=== PATIENT | female | born 1930 | race Hispanic/Latino ===

== ENCOUNTER 2019-02-19 09:11 | Emergency (ER) | payer MEDICARE ==
[~2019-02-19] VITALS: Ht 157.5 cm; Wt 40.8 kg
--- OUTSIDE RECORDS SUMMARY | 2019-02-19 09:13 | XMS REPORT ---
Author Author [facility] Address Unknown Phone Unavailable Care Team Providers Care Exhibition Specialist Name Role Phone Evelina MILLER Unavailable Unavailable Evelina WREN Unavailable Unavailable AGATA PEREZ Unavailable Unavailable Problems This patient has no known problems. Allergies, Adverse Reactions, Alerts This patient has no known allergies or adverse reactions. Medications This patient has no known medications. Results Test Description Test Time Test Comments Text Results Atomic Results Result Comments US GUIDED PARACENTESIS 2019-01-30 14:12:00 [place] [address] Patient Name: ARIAS DEJESUS MR #: [id number] : 1930 Age/Sex: 89/M Req #: [id number] Adm Physician: Ordered by: SLIVER MILLER MD Report #: [id number] Location: Room/Bed: Procedure: [id number] US/US GUIDED PARACENTESIS Exam Date: Exam Time: REPORT STATUS: Signed Date and Time: 01/30/2019 @ 1:00 PM Procedure: Ultrasound guided paracentesis Pre-operative diagnosis: Ascites Post-operative diagnosis: Ascites Conscious Sedation: None The patient's heart rate and pulse oximetry were continuously monitored by the interventional radiology nurse. Blood pressure was monitored at 5 minute intervals. Additional Medications: Lidocaine 1% for local anesthesia Estimated blood loss: Minimal Blood products administered: None Specimens: 7,000 cc straw-colored fluid Implants: None Complications: No immediate Condition at completion: Stable Disposition: Discharged home DISCUSSION: Informed consent was obtained and documented in the medical record. The patient was placed in the supine position and the right upper quadrant of the abdomen was prepped and draped in the standard sterile fashion. A suitable percutaneous approach to the ascitic fluid was identified and 1% lidocaine was infiltrated into the skin and subcutaneous tissues for local anesthesia. Then with sonographic guidance a 5 Tajik Yueh needle catheter was advanced into the peritoneal cavity with return of ascitic fluid. The catheter was advanced off the needle and connected to vacuum bottle with subsequent evacuation of 7,000 cc straw- colored fluid. The catheter was removed and a sterile dressing was applied. The patient tolerated the procedure well without immediate complication. FINDINGS: Large volume ascites. IMPRESSION: Successful ultrasound-guided paracentesis with evacuation of 7,000 cc of straw-colored fluid. Signed by: Dr. Yeni Myers DO on 01/30/2019 2:15 PM Dictated By: YENI MYERS DO 1415 Transcribed By: IFEANYI on 01/30/19 1415 COPY TO: SILVER MILLER MD CT ABDOMEN/PELVIS W 2019-01-13 20:13:00 [place] [address] Patient Name: ARIAS DEJESUS MR #: [id number] : 1930 Age/Sex: 89/M Req #: [id number] [facility] Physician: Ordered by: JONATHAN WREN MD Report #: [id number] Location: ER Room/Bed: Procedure: [id number] CT/CT ABDOMEN/PELVIS W Exam Date: 01/13/19 Exam Time: 1929 REPORT STATUS: Signed EXAM: CT Abdomen and Pelvis WITH contrast INDICATIO N: 89-year-old male with abdominal pain COMPARISON: None. TECHNIQUE: Abdomen and pelvis were scanned utilizing a multidetector helical scanner from the lung base to the pubic symphysis after administration of IV contrast. Coronal and sagittal reformations were obtained. Routine protocol was performed. Scan was performed when during portal venous phase. IV CONTRAST: 150 mL of Omnipaque 300 ORAL CONTRAST: None COMPLICATIONS: None RADIATION DOSE: Total DLP: 339 mGy*cm Estimated effective dose: (DLP x 0.015 x size factor) mSv CTDIvol has been reviewed. It is below the limits set by the Radiation Protocol Committee (RPC). FINDINGS: LINES and TUBES: None. LOWER THORAX: Multiple well-circumscribed cysts are scattered throughout both lungs and range in size from 0.5 cm to 1.5 cm. A moderate size left pleural effusion compresses the left lower lobe. HEPATOBILIARY: A 4.5 cm heterogeneously enhancing mass in the right hepatic lobe on image 20, series 2. The liver is shrunken and has a nodular contour. The caudate lobe is hypertrophied. GALLBLADDER: No radio-opaque stones or sludge. No wall thickening. SPLEEN: Spleen is enlarged and measures up to 13 cm in craniocaudal dimension. PANCREAS: No focal masses or ductal dilatation. ADRENALS: No discrete nodules. Both adrenal glands are thickened. KIDNEYS/URETERS: Kidneys enhance symmetrically. Mild right hydronephrosis without obstructing stone. No cystic or solid mass lesions. No stones. GI TRACT: No abnormal distention, wall thickening, or evidence of bowel obstruction. Appendix is normal. PELVIC ORGANS/BLADDER: Unremarkable. LYMPH NODES: No lymphadenopathy. VESSELS: Moderate calcified atherosclerotic plaque throughout the abdominal aorta branch vessels and pelvic arterial structures. PERITONEUM / RETROPERITONEUM: Moderate amount of free fluid throughout the abdomen and pelvis with mildly thickened and enhancing peritoneum. A fluid-filled inguinal hernias on the right and also contains enhancing peritoneum. Hernia does not contain bowel. BONES: Unremarkable. SOFT TISSUES: Mild subcutaneous edema. IMPRESSION: 1. Findings are most consistent with decompensated cirrhosis with volume overload including left pleural effusion and abdominopelvic ascites. 2. Mass in the liver is highly suspicious for HCC. This can be further evaluated with MRI of the abdomen, liver protocol. 3. Cysts in the bilateral lungs are indeterminate and could represent sequelae of previous infectious/inflammatory insult. Signed by: Claudia Nicole MD on 01/13/2019 8:26 PM Dictated By: CLAUDIA NICOLE MD 25 Transcribed By: IFEANYI on 01/13/192025 COPY TO: JONATHAN WREN MD US GUIDED PARACENTESIS 2019-01-13 15:21:00 [place] [address] Patient Name: ARIAS DEJESUS MR #: [id number] : 1930 Age/Sex: 89/M Req #: [id number] Adm Physician: Ordered by: AGATA PEREZ MD Report #: [id number] Location: US Room/Bed: Procedure: [id number] US/US GUIDED PARACENTESIS Exam Date: Exam Time: REPORT STATUS: Signed Date and Time: 01/13/2019 Procedure: Ultrasound guided paracentesis wafer machine operator: Dr. Thomas Pre-operative diagnosis: Ascites Post-operative diagnosis: Ascites Conscious Sedation: None The patient's heart rate and pulse oximetry were continuously monitored by the interventional radiology nurse. Blood pressure was monitored at 5 minute intervals. Additional Medications: Lidocaine 1% for local anesthesia Estimated blood loss: Minimal Blood products administered: None Specimens: 7700 cc straw-colored fluid Implants: None Complications: No immediate Condition at completion: Stable Disposition: Discharged home DISCUSSION: Informed consent was obtained and documented in the medical record. The patient was placed in the supine position and the right upper quadrant of the abdomen was prepped and draped in the standard sterile fashion. A suitable percutaneous approach to the ascitic fluid was identified and 1% lidocaine was infiltrated into the skin and subcutaneous tissues for local anesthesia. Then under continuous sonographic guidance a 5 Tajik Yueh needle catheter was advanced into the peritoneal cavity with return of ascitic fluid. The catheter was advanced off the needle and connected to vacuum bottle with subsequent evacuation of 7700 cc straw-colored fluid. The catheter was removed and a sterile dressing was applied. The patient tolerated the procedure well without immediate complication. FINDINGS: Moderate ascites. IMPRESSION: Successful ultrasound-guided paracentesis with evacuation of 7700 cc straw-colored fluid. Signed by: Dr. Yomaira Thomas M.D. on 01/13/2019 3:23 PM Dictated By: YOMAIRA THOMAS MD 1523 Transcribed By: IFEANYI on 01/13/19 1523 COPY TO: AGATA PEREZ M.D. US GUIDED PARACENTESIS 2018-12-31 15:18:00 [place] [address] Patient Name: ARIAS DEJESUS MR #: [id number] : 1930 Age/Sex: 88/M Req #: [id number] Adm Physician: Ordered by: SILVER MILLER MD Report #: [id number] Location: Room/Bed: Procedure: [id number] US/US GUIDED PARACENTESIS Exam Date: 12/31/18 Exam Time: 1337 REPORT STATUS: Signed EXAM: Ultrasound-guided paracentesis DATE: 12/31/2018 2:37 PM INDICATION: Cirrhosis PROCEDURES PERFORMED: Ultrasound guided paracentesis Ultrasound images archived and saved in PACS. Anesthesia: Local, 1% lidocaine Devices: 5-Tajik centesis needle PROCEDURE REPORT: After informed consent was obtained, ultrasound was utilized to identify the largest pocket of ascitic fluid. A safe entry route was identified and the overlying skin was prepped and draped in usual sterile fashion. Lidocaine1% was used for local anesthesia. Under ultrasound guidance, a 5 Fr [employer] centesis needle/catheter was advanced into the ascites in the right mid portion of the abdomen. A total of 7,600 cc were aspirated without complication. The catheter was removed and a dressing applied to the skin. Complications: None Blood loss: Minimal, less than 1cc Patient disposition: Stable IMPRESSION: Uncomplicated ultrasound guided paracentesis with removal of 7,600 cc. Signed by: Dr. Yeni Myers DO on 12/31/2018 3:21 PM Dictated By: YENI MYERS DO 152 Transcribed By: IFEANYI on 12/31/18 152 COPY TO: SILVER MILLER MD US GUIDED PARACENTESIS 2018-12-16 15:52:00 [place] [address] Patient Name: ARIAS DEJESUS MR #: [id number] : 1930 Age/Sex: 88/M Req #: [id number] [facility] Physician: Ordered by: SILVER MILLER MD Report #: [id number] Location: Room/Bed: Procedure: [id number] US/US GUIDED PARACENTESIS Exam Date: Exam Time: REPORT STATUS: Signed Procedure: Ultrasound-guided therapeutic paracentesis wafer machine operator: Jose Sylvester MD Pre-operative diagnosis: Ascites Post-operative diagnosis: Ascites Conscious Sedation: None The patient's heart rate and pulse oximetry were continuously monitored by the interventional radiology nurse. Additional Medications: 1% subcutaneous lidocaine 10 cc Estimated blood loss: None. Blood products administered: None Specimens: None Implants: None Condition at completion: Stable DISCUSSION: Informed consent was obtained and documented in the medical record. The right lower quadrant of the abdomen was prepped and draped in standard sterile fashion. 1% lidocaine was infiltrated into the skin and subcutaneous tissues for local anesthesia. Then under continuous sonographic guidance a 5 Fr catheter was advanced into the peritoneal space with subsequent evacuation of 7,300 cc serous fluid by vacuum bottle. The catheter was then removed and a sterile dressing was applied. Postprocedure sonographic imaging demonstrated resolution of ascites. The patient tolerated the procedure well without immediate complication. IMPRESSION: Ultrasound-guided therapeutic paracentesis with removal of 7,300 cc of serous ascites. Signed by: Dr. Jose Sylvester MD on 12/16/2018 3:53 PM Dictated By: JOSE SYLVESTER MD 52 Transcribed By: IFEANYI on 12/16/181552 COPY TO: SILVER MILLER MD US GUIDED PARACENTESIS 2018-11-25 15:37:00 [place] [address] Patient Name: ARISA DEJESUS MR #: [id number] : 1930 Age/Sex: 88/M Req #: [id number] Adm Physician: Ordered by: SILVER MILLER MD Report #: [id number] Location: Room/Bed: Procedure: [id number] US/US GUIDED PARACENTESIS Exam Date: 11/25/18 Exam Time: 1430 REPORT STATUS: Signed EXAM: Ultrasound-guided paracentesis DATE: 11/25/2018 2:32 PM INDICATION: Cirrhosis PROCEDURES PERFORMED: Ultrasound guided paracentesis Ultrasound images archived and saved in PACS. Anesthesia: Local, 1% lidocaine Devices: 5-Tajik centesis needle PROCEDURE REPORT: After informed consent was obtained, ultrasound was utilized to identify the largest pocket of ascitic fluid. A safe entry route was identified and the overlying skin was prepped and draped in usual sterile fashion. Lidocaine1% was used for local anesthesia. Under ultrasound guidance, a centesis needle was advanced into the ascites in the right mid portion of the abdomen. A total of 7,000 cc were aspirated without complication. The catheter was removed and a dressing applied to the skin. Complications: None Blood loss: Minimal, less than 1cc Patient disposition: Stable IMPRESSION: Uncomplicated ultrasound guided paracentesis with removal of 7,000 cc. Signed by: Dr. Yeni Myers DO on 11/25/2018 3:39 PM Dictated By: YENI MYERS DO 1539 Transcribed By: IFEANYI on 11/25/18 1539 COPY TO: SILVER MILLER MD US GUIDED PARACENTESIS 2018-11-15 16:12:00 [place] [address] Patient Name: ARIAS DEJESUS MR #: [id number] : 1930 Age/Sex: 88/M Req #: [id number] Adm Physician: Ordered by: SILVER MILLER MD Report #: [id number] Location: Room/Bed: Procedure: [id number] US/US GUIDED PARACENTESIS Exam Date: 11/15/18 Exam Time: 1413 REPORT STATUS: Signed Procedure: Ultrasound-guided therapeutic paracentesis wafer machine operator: Jose Sylvester MD Pre-operative diagnosis: Ascites Post-operative diagnosis: Ascites Conscious Sedation: None The patient's heart rate and pulse oximetry were continuously monitored by the interventional radiology nurse. Additional Medications: 1% subcutaneous lidocaine 10 cc Estimated blood loss: None. Blood products administered: None Specimens: None Implants: None Condition at completion: Stable DISCUSSION: Informed consent was obtained and documented in the medical record. The right lower quadrant of the abdomen was prepped and draped in standard sterile fashion. 1% lidocaine was infiltrated into the skin and subcutaneous tissues for local anesthesia. Then under continuous sonographic guidance a 5 Fr catheter was advanced into the peritoneal space with subsequent evacuation of 7,850 cc serous fluid by vacuum bottle. The catheter was then removed and a sterile dressing was applied. Postprocedure sonographic imaging demonstrated resolution of ascites. The patient tolerated the procedure well without immediate complication. IMPRESSION: Ultrasound- guided therapeutic paracentesis with removal of 7,850 cc of serous ascites. Signed by: Dr. Jose Sylvester MD on 11/15/2018 4:13 PM Dictated By: JOSE SYLVESTER MD 1613 Transcribed By: IFEANYI on 11/15/18 1613 COPY TO: SILVER MILLER MD US GUIDED PARACENTESIS 2018-10-30 14:50:00 [place] [address] Patient Name: ARIAS DEJESUS MR #: [id number] : 1930 Age/Sex: 88/M Req #: [id number] Adm Physician: Ordered by: SILVER MILLER MD Report #: [id number] Location: Room/Bed: Procedure: [id number] US/US GUIDED PARACENTESIS Exam Date: 10/30/18 Exam Time: 1338 REPORT STATUS: Signed PROCEDURE: US GUIDED PARACENTESIS Primary oper ator: Yeni Myers DO Pre-operative diagnosis: Ascites Post-operative diagnosis: Ascites Conscious Sedation: None The patient's heart rate and pulse oximetry were continuously monitored by the interventional radiology nurse. Additional Medications: 1% subcutaneous lidocaine 5 cc Estimated blood loss: None. Blood products administered: None Specimens: 5,800 cc Im plants: None Condition at completion: Stable DISCUSSION: Informed consent was obtained and documented in the medical record. The right lateral upper abdomen was prepped and draped in standard sterile fashion. 1% lidocaine was infiltrated into the skin and subcutaneous tissues for local anesthesia. Then under continuous sonographic guidance a 5 Fr [employer] catheter was advanced into the peritoneal space with subsequent evacuation of 5,800 cc serous fluid by vacuum bottle. The catheter was then removed and a sterile dressing was applied. Postprocedure sonographic imaging demonstrated small volume residual perihepatic ascites. The patient tolerated the procedure well without immediate complication. IMPRESSION: Ultrasound-guided therapeutic paracentesis with removal of 5,800 cc of serous Yeni Myers D.O. Dictated by: Yeni Myers D.O. on 10/30/2018 at 14:50 Electronically approved by: Yeni Myers D.O. on 10/30/2018 at 1 4:50 Dictated By: YENI MYERS DO 1450 Transcribed By: YASMEEN on 10/30/18 1450 COPY TO: SILVER MILLER MD US GUIDED PARACENTESIS 2018-10-15 11:16:00 [place] [address] Patient Name: ARIAS DEJESUS MR #: [id number] : 1930 Age/Sex: 88/M Req #: [id number] Adm Physician: Ordered by: SILVER MILLER MD Report #: [id number] Location: US Room/Bed: Procedure: [id number] US/US GUIDED PARACENTESIS Exam Date: Exam Time: REPORT STATUS: Signed PROCEDURE: Ultrasound-guided therapeutic paracentesis Pre-o perative diagnosis: Ascites Post-operative diagnosis: Ascites Conscious Sedation: None-the patient's heart rate and pulse oximetry were continuously monitored by the interventional radiology nurse. Medications: 1% subcutaneous lidocaine 10 cc Estimated blood loss: None. Blood products administered: None Specimens: 8,400 cc which was discarded Implants: None Condition at completion: Stable DISCUSSION: Informed consent was obtained and documented in the medical record. The right upper quadrant of the abdomen was prepped and draped in standard sterile fashion with full barrier sterile technique. 1% lidocaine was infiltrated into the skin and subcutaneous tissues for local anesthesia. Then under continuous sonographic guidance a 5 FR [employer] catheter was advanced into the peritoneal space with subsequent evacuation of 8,400 cc serous fluid by vacuum bottle. The catheter was then removed and a sterile dressing was applied. Postprocedure sonographic imaging demonstrated no residual perihepatic ascites. The patient tolerated the procedure well without immediate complication. IMPRESSION: Ultrasound- guided therapeutic paracentesis with removal of 8,400 cc of serous ascites. Yeni Myers D.O. Dictated by: Yeni Myers D.O. on 10/15/2018 at 11:16 Electronically approved by: Yeni Myers D.O. on 10/15/2018 at 11:16 Dictated By: YENI MYERS DO 1116 Transcribed By: YASMEEN on 10/15/18 1116 COPY TO: SILVER MILLER MD US GUIDED PARACENTESIS 2018-10-04 10:50:00 [place] [address] Patient Name: ARIAS DEJESUS MR #: [id number] : 1930 Age/Sex: 88/M Re #: [id number] [facility] Physician: Ordered by: SILVER MILLER MD Report #: [id number] Location: Room/Bed: Procedure: [id number] US/US GUIDED PARACENTESIS Exam Date: Exam Time: REPORT STATUS: Signed Procedure: Ultrasound-guided therapeutic paracentesis wafer machine operator: Jose Sylvester MD Pre-operative diagnosis: Ascites Post-operative diagnosis: Ascites Conscious Sedation: None The patient's heart rate and pulse oximetry were continuously monitored by the interventional radiology nurse. Additional Medications: 1% subcutaneous lidocaine 10 cc Estimated blood loss: None. Blood products administered: None Specimens: None Implants: None Condition at completion: Stable DISCUSSION: Informed consent was obtained and documented in the medical record. The right lower quadrant of the abdomen was prepped and draped in standard sterile fashion. 1% lidocaine was infiltrated into the skin and subcutaneous tissues for local anesthesia. Then under continuous sonographic guidance a 5 Fr catheter was advanced into the peritoneal space with subsequent evacuation of 5,450 cc serous fluid by vacuum bottle. The catheter was then removed and a sterile dressing was applied. Postprocedure sonographic imaging demonstrated small volume residual perihepatic ascites. The patient tolerated the procedure well without immediate complication. IMPRESSION: Ultrasound-guided therapeutic paracentesis with removal of 5,450 cc of serous ascites. Signed by: Dr. Jose Sylvester MD on 10/04/2018 10:51 AM Dictated By: JOSE SYLVESTER MD 105 Transcribed By: IFEANYI on 10/04/181050 COPY TO: SILVER MILLER MD US GUIDED PARACENTESIS 2018-09-17 12:59:00 [place] [address] Patient Name: ARIAS DEJESUS MR #: [id number] : 1930 Age/Sex: 88/M Req #: [id number] [facility] Physician: Ordered by: SILVER MILLER MD Report #: [id number] Location: Room/Bed: Procedure: US/US GUIDED PARACENTESIS Exam Date: 09/17/18 Exam Time: 1156 REPORT STATUS: Signed Procedure: Ultrasound-guided therapeutic paracentesis wafer machine operator: Jose Sylvester MD Pre-operative diagnosis: Ascites Post-operative diagnosis: Ascites Conscious Sedation: None The patient's heart rate and pulse oximetry were continuously monitored by the interventional radiology nurse. Blood pressure was monitored at 5 minute intervals. Additional Medications: Lidocaine 1% for local anesthesia Estimated blood loss: None. Blood products administered: None Specimens: None Implants: None Condition at completion: Stable DISCUSSION: Informed consent was obtained and documented in the medical record. The right lower quadrant of the abdomen was prepped and draped in standard sterile fashion. 1% lidocaine was infiltrated into the skin and subcutaneous tissues for local anesthesia. Then under continuous sonographic guidance a 7 Fr catheter was advanced into the peritoneal space with subsequent evacuation of 7,250 cc serous fluid by vacuum bottle. The catheter was then removed and a sterile dressing was applied. Postprocedure sonographic imaging demonstrated no significant residual ascites. The patient tolerated the procedure well without immediate complication. IMPRESSION: Ultrasound-guided therapeutic paracentesis with removal of 7,250 cc of serous ascites. Signed by: Dr. Jose Sylvester MD on 09/17/2018 1:01 PM Dictated By: JOSE SYLVESTER MD 1301 Transcribed By: IFEANYI on 09/17/18 1301 COPY TO: SILVER MILLER MD US GUIDED PARACENTESIS 2018-08-27 15:42:00 [place] [address] Patient Name: ARIAS DEJESUS MR #: [id number] : 1930 Age/Sex: 88/M Req #: [id number] [facility] Physician: Ordered by: SILVER MILLER MD Report #: [id number] Location: US Room/Bed: Procedure: [id number] US/US GUIDED PARACENTESIS Exam Date: 08/27/18 Exam Time: 1357 REPORT STATUS: Signed PROCEDURE: US GUIDED PARACENTESIS COMPARISON: Multiple prior paracentesis procedures most recently 08 13 2018. INDICATIONS: ASCITES FINDINGS: Informed consent was obtained and documented in the medical record. Patient was placed in the supine position on the sonographic table and the right lower quadrant of the abdomen was prepped and draped in standard sterile fashion. 1% lidocaine was infiltrated into the skin and subcutaneous tissues for local anesthesia. Under continuous sonographic guidance a 5 [employer] Yueh needle catheter was advanced into the ascitic fluid. The catheter was advanced off the needle and connected to vacuum bottle with subsequent evacuation of 6000 cc straw- colored fluid. The catheter was removed and a sterile dressing was applied. Patient tolerated procedure well without immediate complication. CONCLUSION: Successful ultrasound-guided paracentesis with evacuation of 6000 cc straw-colored fluid. Dictated by: Yomaira Thomas M.D. on 08/27/2018 at 15:42 Electronically approved by: Yomaira Thomas M.D. on 08/27/2018 at 15:42 Dictated By: YOMAIRA THOMAS MD 1548 Transcribed By: YASMEEN on 08/27/18 1542 COPY TO: SILVER MILLER MD US GUIDED PARACENTESIS 2018-08-13 14:24:00 [place] [address] Patient Name: ARIAS DEJESUS MR #: [id number] : 1930 Age/Sex: 88/M Req #: [id number] Adm Physician: Ordered by: SILVER MILLER MD Report #: [id number] Location: US Room/Bed: Procedure: [id number] US/US GUIDED PARACENTESIS Exam Date: 08/13/18 Exam Time: 1320 REPORT STATUS: Signed Procedure: Ultrasound-guided therapeutic paracentesis wafer machine operator: Jose Sylvester MD Pre-operative diagnosis: Ascites Post-operative diagnosis: Ascites Conscious Sedation: None The patient's heart rate and pulse oximetry were continuously monitored by the interventional radiology nurse. Blood pressure was monitored at 5 minute intervals. Additional Medications: Lidocaine 1% for local anesthesia Estimated blood loss: None. Blood products administered: None Specimens: 6,450 cc serous fluid Implants: None Condition at completion: Stable DISCUSSION: Informed consent was obtained and documented in the medical record. The left lower quadrant of the abdomen was prepped and draped in standard sterile fashion. 1% lidocaine was infiltrated into the skin and subcutaneous tissues for local anesthesia. Then under continuous sonographic guidance a 7 Fr catheter was advanced into the peritoneal space with subsequent evacuation of 6,450 cc serous fluid by vacuum bottle. The catheter was then removed and a sterile dressing was applied. Postprocedure sonographic imaging demonstrated no significant residual ascites. The patient tolerated the procedure well without immediate complication. IMPRESSION: Ultrasound-guided therapeutic paracentesis with removal of 6,450 cc of serous ascites. Signed by: Dr. Jose Sylvester MD on 08/13/2018 2:24 PM Dictated By: JOSE SYLVESTER MD 23 Transcribed By: IFEANYI on 08/13/181423 COPY TO: SILVER MILLER MD US GUIDED PARACENTESIS 2018-07-29 15:46:00 [place] [address] Patient Name: ARIAS DEJESUS MR #: [id number] : 1930 Age/Sex: 88/M Req #: [id number] Adm Physician: Ordered by: SILVER MILLER MD Report #: [id number] Location: Room/Bed: Procedure: [id number] US/US GUIDED PARACENTESIS Exam Date: Exam Time: REPORT STATUS: Signed Procedure: Ultrasound-guided therapeutic paracentesis wafer machine operator: Jose Sylvester MD Pre-operative diagnosis: Ascites Post-operative diagnosis: Ascites Conscious Sedation: None The patient's heart rate and pulse oximetry were continuously monitored by the interventional radiology nurse. Blood pressure was monitored at 5 minute intervals. Additional Medications: Lidocaine 1% for local anesthesia Estimated blood loss: None. Blood products administered: None Specimens: 7,400 cc serous peritoneal fluid Implants: None Condition at completion: Stable DISCUSSION: Informed consent was obtained and documented in the medical record. The left lower quadrant of the abdomen was prepped and draped in standard sterile fashion. 1% lidocaine was infiltrated into the skin and subcutaneous tissues for local anesthesia. Then under continuous sonographic guidance a 7 Fr catheter was advanced into the peritoneal space with subsequent evacuation of 7,400 cc serous fluid by vacuum bottle. The catheter was then removed and a sterile dressing was applied. Postprocedure sonographic imaging demonstrated no significant residual ascites. The patient tolerated the procedure well without immediate complication. IMPRESSION: Ultrasound-guided therapeutic paracentesis with removal of 7,400 cc of serous ascites. Signed by: Dr. Jose Sylvester MD on 07/29/2018 3:47 PM Dictated By: JOSE SYLVESTER MD [facility] Signed By: JOSE SYLVESTER MD on 07/29/181546 Transcribed By: IFEANYI on 07/29/181546 COPY TO: SILVER MILLER MD US GUIDED PARACENTESIS 2018-07-19 17:00:00 [place] [address] Patient Name: ARIAS DEJESUS MR #: [id number] : 1930 Age/Sex: 88/M Req #: [id number] Adm Physician: Ordered by: SILVER MILLER MD Report #: [id number] Location: Room/Bed: Procedure: [id number] US/US GUIDED PARACENTESIS Exam Date: Exam Time: REPORT STATUS: Signed PROCEDURE: US GUIDED PARACENTESIS COMPARISON: Patients [facility], US, US ABDOMEN COMPLETE, 06/20/2018, 8:38. INDICATIONS: ASCITES FINDINGS: Ultrasound was utilized for needle placement into the left lower quadrant of the abdomen to drain large volume ascites. A 7 [place] TPK paracentesis catheter was placed in the left lower quadrant of the abdomen following sterile preparation and local anesthesia with 1% Xylocaine. Approximately 7000 cc of straw-colored ascitic fluid was withdrawn and sent to the laboratory. Patient tolerated procedure well. Patient did receive 50 g of albumin during the examination. CONCLUSION: Ultrasound guided paracentesis. Yeni Myers D.O. Dictated by: Yeni Myers D.O. on 07/19/2018 at 17:00 Electronically approved by: Yeni Myers D.O. on 07/19/2018 at 17:00 Dictated By: YENI MYERS DO 99 Transcribed By: YASMEEN on 07/19/18 170 COPY TO: SILVER MILLER MD US ABDOMEN COMPLETE 2018-06-20 10:21:00 [place] [address] Patient Name: ARIAS DEJESUS MR #: [id number] : 1930 Age/Sex: 88/M Req #: [id number] Adm Physician: Ordered by: SILVER MILLER MD Report #: [id number] Location: US Room/Bed: Procedure: [id number] US/US ABDOMEN COMPLETE Exam Date: Exam Time: REPORT STATUS: Signed PROCEDURE: ABDOMINAL ULTRASOUND COMPARISON: None. INDICATIONS: ASCITES/CIRRHOSIS FINDINGS: Liver: Measures 12.6 cm. Increased hepatic parenchymal echogenicity. No focal mass. Main portal vein: 1.2 cm. Hepatopedal flow. Gallbladder: No evidence of pericholecystic fluid. Mild gallbladder wall thickening measuring 5 mm. No evidence of hyperemia. There is a 2 mm echogenic focus along the anterior gallbladder wall which is not demonstrated to be mobile. No Doppler flow is demonstrated. Common Bile Duct: Measures 0.4 cm. No echogenic filling defect. Sonographic Nance's sign: Negative. Right kidney: Measures 11.1 cm. No solid or cystic mass, echogenic calculi, or hydronephrosis. Normal parenchymal echogenicity. Left kidney: Measures 10.1 cm. Prominent left extra-renal pelvis. No solid or cystic mass, echogenic calculi, or hydronephrosis. Normal parenchymal echogenicity. Spleen: Measures 13.6 cm. Pancreas: The visualized portions of the pancreas are normal. Inferior vena cava: Normal. Aorta: Normal. Ascites: Large amount of ascites. CONCLUSION: Hepatic steatosis and large volume ascites. Mild thick walled gallbladder, likely reflecting volume overload. No specific sonographic evidence of cholecystitis. A 2 mm echogenic focus in the anterior wall of the gallbladder may reflect a stone or a small polyp. A follow-up ultrasound may be considered in 6 months to assess for stability. Dictated by: JOSE SYLVESTER M.D. on 06/20/2018 at 10:21 Electronically approved by: JOSE SYLVESTER M.D. on 06/20/2018 at 10:21 Dictated By: JOSE SYLVESTER MD 1021 Transcribed By: YASMEEN on 06/20/18 1021 COPY TO: SILVER MILLER MD
[2019-02-19 09:53] LABS: BASOPHILS % 0.2 % (0.0-1.0); EOSINOPHILS % 0.5 % (0.0-6.0); HEMATOCRIT 27.5 % (34.2-44.1); HEMOGLOBIN 8.9 g/dL (12.0-16.0); LYMPHOCYTES # (AUTO) 0.6 (1.0-3.2); LYMPHOCYTES % 11.1 % (18.0-39.1); MEAN CORPUSCULAR HEMOGLOBIN 29.3 pg (28-32); MEAN CORPUSCULAR HGB CONC 32.4 g/dL (31-35); MEAN CORPUSCULAR VOLUME 90.5 fL (81-99); MONOCYTES # (AUTO) 0.4 (0.2-0.8); MONOCYTES % 6.7 % (4.4-11.3); NEUTROPHILS # (AUTO) 4.5 (2.1-6.9); PLATELET COUNT 109 x10e3/uL (140-360); RED BLOOD COUNT 3.04 x10e6/uL (3.6-5.1); RED CELL DISTRIBUTION WIDTH 16.8 % (11.7-14.4)
[2019-02-19 10:13] LABS: ALBUMIN 1.7 g/dL (3.5-5.0); ALBUMIN/GLOBULIN RATIO 0.3 (0.8-2.0); CALCIUM 8.3 mg/dL (8.4-10.2); CREATININE, SERUM 1.61 mg/dL (0.57-1.11)
[2019-02-19 10:14] LABS: INR 1.25; PROTHROMBIN TIME 16.3 seconds (11.9-14.5)
[2019-02-19 10:15] LABS: PARTIAL THROMBOPLASTIN TIME 38.7 seconds (23.8-35.5)
--- NOTE | 2019-02-19 10:20 | NUR ---
ASSISTED DR SANTOS WITH ABDOMINAL PARACENTESIS
--- NOTE | 2019-02-19 11:27 | NUR ---
DR SANTOS D/C ABDOMINAL PARACENTESIS; OUTPUT APPROX 5500
--- NOTE | 2019-02-19 11:27 | NUR ---
Note undone in [facility] - 02/19/[address] DANIELLE Worrell ABDOMINAL PARACENTESIS; PT OUTPUT APPROX 4800 CC Addendum: 02/19/19 at 1134 by ERLIN Amendment undone in [facility] - 02/19/19 [address] DANIELLE Worrell ABDOMINAL PARACENTESIS; OUTPUT APPROX 5500
[2019-02-19 11:49] VITALS: BP 103/52
== END 2019-02-19 12:19 | disposition home or self-care (01) ==
LOC: ER 09:11
DX: K70.31 Alcoholic cirrhosis of liver with ascites (principal); Z87.891 Personal history of nicotine dependence
CPT/HCPCS: 36415; 49082; 80053; 82948; 85025; 85610; 85730; 87070; 87205; 99283; C1729; 49083